=== PATIENT | male | born 1940 | race Caucasian/White ===

== ENCOUNTER → 2018-02-18 | Outpatient (CLI) | payer MEDICARE ==
[~2018-02-18] MED LIST: AEC81 PO; AMLO5TAB7 PO; AZAT50TA PO; CARV25TA PO; DOXY100C2 PO; INFL100I INJ; NITR0.4T SL; SIMV40TA59 PO; TIOT18CA3 IH; TRAM50TA4 PO
== END | disposition home or self-care (01) ==
LOC: SHCH 09:25
PROVIDERS: ATTEND Internal Medicine Cardiovascular Disease
DX: I65.23 Occlusion and stenosis of bilateral carotid arteries (principal); I87.2 Venous insufficiency (chronic) (peripheral); R06.9 Unspecified abnormalities of breathing
CPT/HCPCS: 93880; 93925; 93970

== ENCOUNTER → 2018-05-05 | Outpatient (CLI) | payer MEDICARE ==
[~2018-05-05] MED LIST changes: -AMLO5TAB7 PO; +AMLO5TAB9 PO
== END | disposition home or self-care (01) ==
LOC: SHCH 07:37
PROVIDERS: ATTEND Internal Medicine Cardiovascular Disease
DX: K55.059 Acute (reversible) ischemia of intestine, part and extent unspecified (principal); R63.4 Abnormal weight loss
CPT/HCPCS: 93975

== ENCOUNTER 2018-07-25 03:19 | Observation (INO) | payer MEDICARE ==
[~2018-07-25] VITALS: Ht 177.8 cm; Wt 71.8 kg
[~2018-07-25 03:19] MED LIST changes: -AEC81 PO; +ALBU18HF7 IH; -AMLO5TAB9 PO; +ASPI-1197 PO; -AZAT50TA PO; +CHOL50004 PO; -DOXY100C2 PO; -INFL100I INJ; +LOSA50TA64 PO; -NITR0.4T SL; -SIMV40TA59 PO; -TRAM50TA4 PO
[2018-07-25 04:23] LABS: EOSINOPHILS % (AUTO) 5.3 % (0.0-8.0); HEMATOCRIT 39.4 % (42-54); LYMPHOCYTES % (AUTO) 10.3 % (21.0-51.0); MEAN CORPUSCULAR HEMOGLOBIN 30.6 pg (27.0-33.0); MEAN CORPUSCULAR HGB CONC 33.2 g/dL (32.0-36.0); MEAN CORPUSCULAR VOLUME 92.2 fL (79-99); MONOCYTES % (AUTO) 13.9 % (3.0-13.0); NEUTROPHILS % (AUTO) 69.5 % (40.0-77.0); PLATELET COUNT (AUTO) 144 K/uL (130-400); RED BLOOD CELL COUNT(AUTO) 4.27 MIL/uL (4.50-6.20); RED CELL DISTRIBUTION WIDTH 14.4 % (11.0-15.5); WHITE BLOOD COUNT (AUTO) 5.4 K/uL (4.8-10.8)
[2018-07-25 04:38] LABS: POTASSIUM 4.5 mmol/L (3.5-5.1)
[2018-07-25 04:43] LABS: ALBUMIN 3.1 g/dL (3.5-5.0); BILIRUBIN,TOTAL 0.4 mg/dL (0.2-1.0); TOTAL PROTEIN, SERUM 6.1 g/dL (6.0-8.3)
[2018-07-25 04:47] LABS: B-TYPE NATRIURETIC PEPTIDE 141 pg/mL (0-100)
[2018-07-25] MEDS ORDERED: IPRATROPIUM/ALBUTEROL SULFATE 3 ML SOLUTION IH ONE ×3 (04:50→10:08)
[2018-07-25] MEDS ORDERED: METHYLPREDNISOLONE SOD SUCC 125MG/2ML VIAL ONE (06:34)
[2018-07-25] MEDS ORDERED: LEVOFLOXACIN 500 MG/D5W 100 ML 100 ML ONE (06:34)
[2018-07-25] MEDS: METHYLPREDNISOLONE SOD SUCC 125MG/2ML VIAL IV SCH ×3 (06:45→19:49)
[2018-07-25 06:54] LABS: ABG BASE EXCESS 1.9 mmol/L (-2.0-3.0); ABG HCO3 28.6 mmol/L (21.0-28.0); ABG OXYGEN SATURATION 97.8 % (95.0-99.0); ABG PCO2 53 mmHg (35-48)
[2018-07-25 07:52] LABS: INR 0.95 (0.85-1.15); PARTIAL THROMBOPLASTIN TIME 31.6 SEC (26.3-35.5)
[2018-07-25] MEDS: ENOXAPARIN SODIUM 40 MG/0.4 ML SYRINGE SQ SCH (09:00)
[2018-07-25] MEDS: FAMOTIDINE 20MG TAB 20 MG TAB PO SCH ×2 (09:00→20:19)
[2018-07-25] MEDS ORDERED: ENOXAPARIN SODIUM 40 MG/0.4 ML SYRINGE SQ ONE (09:05)
[2018-07-25] MEDS ORDERED: FAMOTIDINE 20MG TAB 20 MG TAB ONE (09:05)
[2018-07-25] MEDS: IPRATROPIUM/ALBUTEROL SULFATE 3 ML SOLUTION IH SCH ×4 (10:47→21:57)
[2018-07-25 11:55] VITALS: BP 138/83
--- NOTE | 2018-07-25 12:20 | NUR ---
ADMISSION Admitted to room 231 from ED - medical pt. Admission assessment/database completed. Pt oriented to room. Call light, needed items placed within reach. Instructed to call for assistance as needed. Voiced understanding. Pt's spouse at bedside. No complaints or concerns voiced by pt. Discussed tentative plan of care. Questions addressed. Pt is in no apparent distress.
[2018-07-25 15:48] VITALS: BP 125/79
[2018-07-25 19:27] VITALS: BP 134/85
[2018-07-25] MEDS ORDERED: PNEUMOCOCCAL VACCINE POLYVALENT 0.5 ML/VIAL [PPV] SQ SCH (19:30)
[2018-07-26 00:06] VITALS: BP 135/68
[2018-07-26] MEDS: IPRATROPIUM/ALBUTEROL SULFATE 3 ML SOLUTION IH SCH ×4 (01:57→14:15)
[2018-07-26 03:31] VITALS: BP 137/74
[2018-07-26] MEDS: METHYLPREDNISOLONE SOD SUCC 125MG/2ML VIAL IV SCH ×3 (03:46→14:00)
[2018-07-26 07:47] VITALS: BP 131/73
[2018-07-26] MEDS: ENOXAPARIN SODIUM 40 MG/0.4 ML SYRINGE SQ SCH (10:04)
[2018-07-26] MEDS: FAMOTIDINE 20MG TAB 20 MG TAB PO SCH (10:04)
[2018-07-26 11:49] VITALS: BP 133/99
[2018-07-26] MEDS ORDERED: BUDE0.5A3 IH (14:46)
[2018-07-26] MEDS ORDERED: IPRA3AMP24 IH (14:46)
[2018-07-26] MEDS ORDERED: ALBU18HF7 IH (14:46)
[2018-07-26] MEDS ORDERED: NEBU-227 MC (14:54)
[2018-07-26] MEDS ORDERED: PRED10TA3 PO (14:54)
[2018-07-26 15:55] VITALS: BP 162/92
== END 2018-07-26 16:14 | disposition home or self-care (01) ==
LOC: EDH 03:19 → EDHIP 06:41 → 2AH 11:52
PROVIDERS: ADMIT Hospitalist; ATTEND Hospitalist
DX: J44.1 Chronic obstructive pulmonary disease with (acute) exacerbation (principal); I25.10 Atherosclerotic heart disease of native coronary artery without angina pectoris; E44.0 Moderate protein-calorie malnutrition; I42.9 Cardiomyopathy, unspecified; I48.91 Unspecified atrial fibrillation; M45.9 Ankylosing spondylitis of unspecified sites in spine; F17.290 Nicotine dependence, other tobacco product, uncomplicated; Z95.0 Presence of cardiac pacemaker; Z95.1 Presence of aortocoronary bypass graft; Z82.0 Family history of epilepsy and other diseases of the nervous system; Z82.3 Family history of stroke; Z82.49 Family history of ischemic heart disease and other diseases of the circulatory system; Z83.3 Family history of diabetes mellitus
CPT/HCPCS: 36415; 36600; 71045; 72100; 80053; 82803; 83880; 84484; 85025; 85378; 85610; 85730; 87040 ×2; 87804 ×2; 93005; 94640 ×10; 94664; 96372; 96374; 96376 ×2; 99291; G0378 ×34; J1650 ×2; J1956; J2930 ×5; 87077; 87186

== ENCOUNTER → 2019-01-14 | Outpatient (CLI) | payer MEDICARE ==
[~2019-01-14] VITALS: Ht 177.8 cm; Wt 72.6 kg
[~2019-01-14] MED LIST changes: +BUDE0.5A3 IH; +IPRA3AMP24 IH; +NEBU-227 MC; +PRED10TA3 PO; +REGADENOSON 0.4 MG/5 ML PF SYG IVP SCH
== END | disposition home or self-care (01) ==
LOC: CANPRECLI → SHCH 01-06 07:33
PROVIDERS: ATTEND Internal Medicine Cardiovascular Disease
DX: I51.89 Other ill-defined heart diseases (principal); R07.9 Chest pain, unspecified; Z95.0 Presence of cardiac pacemaker
CPT/HCPCS: 78452; 93017; 96374; A9500 ×2; J2785